=== PATIENT | male | born 1990 | race Caucasian/White ===

== ENCOUNTER 2021-05-31 12:46 | Emergency (ER) | payer OTHER, SELFPAY ==
--- NOTE | 2021-05-31 | ECG_ITS ---
Test Reason : GENERAL MEDICINE Blood Pressure : / mmHG Vent. Rate : 069 BPM Atrial Rate : 069 BPM P-R Int : 208 ms QRS Dur : 094 ms QT Int : 426 ms P-R-T Axes : 018 003 009 degrees QTc Int : 456 ms Normal sinus rhythm Normal ECG When compared with ECG of 21-JAN-2020 02:24, Inverted T waves have replaced nonspecific T wave abnormality in Inferior leads Referred By: Miguel Angel Lozano Electronically Signed By:NIMCO SANTANA
--- NOTE | ~2021-05-31 | CT_ITS ---
EXAMINATION: CT HEAD WITHOUT CONTRAST CLINICAL INFORMATION: Sudden, severe headache during intercourse. Nausea. COMPARISON: None. TECHNIQUE: Contiguous axial imaging was performed from the skull base to vertex without intravenous administration of contrast. This CT examination was performed using dose optimization techniques as appropriate, variously including the following: *Automated exposure control *Adjustment of mA and/or kV according to patient size (this includes techniques or standardized protocols for targeted exams where dose is matched to indication/reason for exam; i.e. extremities or head) *Use of iterative reconstruction technique DLP: 817 mGy-cm. FINDINGS: There is diffuse hyperdensity throughout the basal cisterns and extending along the bilateral sulci, right greater than left to the level of the high frontal lobes. Findings are consistent with acute subarachnoid hemorrhage. No intraventricular or intraparenchymal extension. No mass effect or midline shift. There is no evidence of acute territorial infarction. No abnormal mass effect or midline shift is seen. [place] to white matter differentiation is well preserved. The ventricles are normal in size. There is no abnormal attenuation within the brain parenchyma. Focal soft tissue swelling and subcutaneous edema overlying the left high parietal calvarium, consistent with a soft tissue contusion. Intact calvarium. The mastoid air cells and visualized portions of the paranasal sinuses are well aerated. CT/CT head/brain wo con IMPRESSION: 1. Acute subarachnoid hemorrhage throughout the basal cisterns and bilateral cerebral sulci, right greater than left. No associated mass effect or midline shift. No intraparenchymal or intraventricular hemorrhage. 2. Soft tissue hematoma overlying the left parietal calvarium. No fracture. This critical result was discussed with Dr. Lozano at 2:07 PM on 05/31/2021 and it was ascertained that the content and urgency of the report was understood at the time of direct communication.
[2021-05-31 12:50] VITALS: BP 158/67; PULSE 76; RESP 26; TEMP 36.4; O2SAT 98; BMI 54.7
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
[2021-05-31] MEDS: Prochlorperazine Edisylate 10 MG/2 ML VIAL IVPUSH (13:30)
[2021-05-31 13:32] LABS: MANUAL DIFF FLAG NO
[2021-05-31] MEDS: HYDROmorphone HCl 1 MG/ML SYRINGE IVPUSH (13:33)
[2021-05-31 13:35] LABS: Basophils Percent Auto 0.3 % (0-2); Eosinophils Percent Auto 0.3 % (0-4); Hematocrit 39.3 % (42-52); Hemoglobin 13.6 g/dl (14.0-18.0); Imm Gran Abs Auto 0.05 X10*3/uL (0.00-0.03); Imm Gran Pct Auto 0.4 % (0.0-0.4); Lymphocytes Absolute Auto 1.8 X10*3/uL (1.2-4.9); Lymphocytes Percent Auto 12.7 % (20-40); Mean Corpuscular HGB Conc 34.6 g/dl (31.0-36.0); Mean Corpuscular Volume 86.6 fL (80-98); Mean Platelet Volume 8.8 fL (9.4-12.4); Monocytes Absolute Auto 0.4 X10*3/uL (0.1-1.2); Monocytes Percent Auto 3.2 % (2-11); Neutrophils Absolute Auto 11.5 X10*3/uL (2.0-8.3); Neutrophils Percent Auto 83.1 % (45-73); Platelet Count 398 X10*3/uL (160-400); Red Blood Count 4.54 X10*6/uL (4.60-5.80); Red Cell Distribution Width 12.7 % (11.0-16.0); White Blood Count 13.8 X10*3/uL (4.8-10.8)
[2021-05-31 13:42] VITALS: BP 130/65; PULSE 79; RESP 18; O2SAT 98
[2021-05-31 14:00] LABS: Alanine Aminotransferase 23 U/L (0-40); Albumin Level 4.1 g/dL (3.5-5.0); Alkaline Phosphatase 99 U/L (39-117); Anion Gap 14 (12-20); Aspartate Amino Transferase 16 U/L (5-37); Bilirubin Total 0.8 mg/dL (0.0-1.0); Blood Urea Nitrogen 8 mg/dL (9-16); Calcium 9.6 mg/dL (8.4-10.2); Carbon Dioxide 23 mmol/L (22-29); Chloride 105 mmol/L (96-108); Creatinine Clr Calc Pharmacy 228.8; Estimated Glomerular Filt Rate > 60; Glucose Random 163 mg/dL (60-115); Potassium 3.9 mmol/L (3.3-5.1); Sodium 138 mmol/L (135-145)
[2021-05-31 14:07] VITALS: BP 109/40; PULSE 65; RESP 18; O2SAT 98
[2021-05-31] MEDS: levETIRAcetam in NaCl (iso-os) 1,000 MG/100 ML PIGGYBACK 400 MG IV (14:32)
[2021-05-31 14:55] LABS: INTERNATIONAL NORM RATIO 1.1 (0.9-1.1); Prothrombin Time 12.5 SEC (9.9-13.0)
[2021-05-31 14:58] LABS: Partial Thromboplastin Time 38.9 SEC (24.1-38.0)
[2021-05-31 15:01] LABS: COVID-19 Test Negative (Negative)
[2021-05-31 15:34] VITALS: BP 145/77; PULSE 69; RESP 17; TEMP 36.4; O2SAT 95
--- NOTE | 2021-05-31 15:34 | PC.NURSE ---
1st call to [facility]
--- NOTE | 2021-05-31 15:44 | MHC.STROKE ---
WALK-IN AT 1246, LKW/ONSET OF SYMPTOMS 0500CTH AT 1328, [facility], NPO, FAILED SWALLOW SCREEN, PLAN IS TO TRANSFER TO [facility] NEURO-ICU. SEE DR JENKINS'S ED NOTES.
--- NOTE | 2021-05-31 15:47 | PC.NURSE ---
PATIENT GOING TO [facility] [address] ROOM [address]. DR REDD IS ACCEPTING DOCTOR.
[2021-05-31] MEDS: ondansetron HCL 4 MG/2 ML VIAL IVPUSH (16:01)
== END 2021-05-31 16:01 | disposition short-term general hospital (02) ==
PROVIDERS: Emergency Provider Emergency Medicine
DX: I60.9 Nontraumatic subarachnoid hemorrhage, unspecified (principal); R51.9 Headache, unspecified; R11.10 Vomiting, unspecified; Z20.822 Contact with and (suspected) exposure to COVID-19; E66.9 Obesity, unspecified
CPT/HCPCS: 36415; 70450; 80053; 85025; 85610; 85730; 87635; 93005; 96374; 96375; 99285; 99291; J1170; J1953; J2405